=== PATIENT | male | born 1970 | race Caucasian/White ===

== ENCOUNTER 2019-09-22 15:11 | Outpatient (CLI) | payer BC ==
--- NOTE | 2019-09-22 15:45 | RAD ---
TWO VIEWS OF THE LUMBAR SPINE 09/22/19 COMPARISON: None. HISTORY: Low back pain with left lower extremity radiculopathy. FINDINGS: Lumbar pedicles appear intact on frontal imaging. The lateral imaging demonstrates normal vertebral b patricia height and alignment. At L2-3, there is mild disc space narrowing and posterior osteophyte formation. There is mild disc sp hien narrowing at the L3-4, L4-5, and L5-S1 levels. There is mild facet hypertrophy at L4-5 and L5-S1. No acute fracture or dislocation. IMPRESSION: Lumbar spine degenerative change as detailed above. POS: [facility]
== END 2019-09-22 15:12 | disposition home or self-care (01) ==
LOC: BICRAD 15:11
PROVIDERS: ATTEND Chiropractor
DX: M54.5 Low back pain (principal); G89.29 Other chronic pain; M47.816 Spondylosis without myelopathy or radiculopathy, lumbar region; M47.817 Spondylosis without myelopathy or radiculopathy, lumbosacral region
CPT/HCPCS: 72100